=== PATIENT | male | born 1995 | race Caucasian/White ===

== ENCOUNTER 2020-09-19 09:27 | Emergency (ER) | payer SELFPAY ==
[~2020-09-19] VITALS: Ht 180.3 cm; Wt 63.5 kg
[2020-09-19 09:30] VITALS: BP 153/92
--- NOTE | 2020-09-19 09:36 | NUR ---
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 DENIES SI/HI. PT STATES "NOT TAKING ANY MEDS AT THE MOMENT". PT PRESENTS W/ POOR HYGIENE. PT TACHYCARDIC, OTHER VS WDL. PT AMBULATED TO ROOM W/ A STEADY GAIT.
--- NOTE | 2020-09-19 09:39 | NUR ---
KENNEL HAND: BREATHLYZER 0.00
--- NOTE | 2020-09-19 10:07 | NUR ---
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
[2020-09-19 10:23] LABS: BASOPHILS % (AUTO) 1 % (0-1); EOSINOPHILS % (AUTO) 1 % (1-7); LYMPHOCYTES % (AUTO) 22 % (22-44); MEAN CORPUSCULAR HEMOGLOBIN 31.5 pg (27.5-34.5); MEAN CORPUSCULAR HGB CONC 35.2 g/dL (33.2-36.2); MEAN PLATELET VOLUME 7.9 fL (7.4-10.4); MONOCYTES % (AUTO) 6 % (2-9); NEUTROPHILS % (AUTO) 71 % (42-75); PLATELET COUNT 330 x10^3/uL (130-400); RED BLOOD COUNT 5.43 x10^6/uL (4.38-5.82); RED CELL DISTRIBUTION WIDTH 12.3 % (9.4-14.8)
[2020-09-19 10:24] LABS: MD NO
--- NOTE | 2020-09-19 10:30 | NUR ---
PT GIVEN SUPP O2 PER ERP. ANTICIPATE DC
[2020-09-19 10:31] LABS: ALANINE AMINOTRANSFERASE 32 U/L (12-78); ALBUMIN 4.2 g/dL (3.4-5.0); ANION GAP 3 mmol/L (5-15); CALCIUM 9.2 mg/dL (8.5-10.1); CHLORIDE 105 mmol/L (98-107); CREATININE 1.07 mg/dL (0.7-1.3)
[2020-09-19 10:33] LABS: ALKALINE PHOSPHATASE 110 U/L (45-117); BILIRUBIN,TOTAL 0.9 mg/dL (0.2-1.0); TOTAL PROTEIN 7.3 g/dL (6.4-8.2)
[2020-09-19 10:40] LABS: SALICYLATE LEVEL < 1.7 mg/dL (2.8-20.0)
--- NOTE | 2020-09-19 12:11 | NUR ---
PT UPRIGHT ON [employer] AWAKE & COOPERATIVE, WATCHING TV, NAD, FOOD TRAY GIVEN, NO OTHER NEEDS AT THIS TIME, CALL LIGHT WITHIN REACH. Addendum: 09/19/20 at 1226 by DORA BREAK RN: PT UPRIGHT ON [employer] AWAKE & COOPERATIVE, WATCHING TV, NAD, FOOD TRAY GIVEN, NO OTHER NEEDS AT THIS TIME, CALL LIGHT WITHIN REACH.
--- NOTE | 2020-09-19 12:27 | NUR ---
Patient given discharge instructions and they have confirmed that they understand the instructions. Patient ambulatory with steady gait.
== END 2020-09-19 12:28 | disposition home or self-care (01) ==
LOC: ED 10:51
DX: F10.150 Alcohol abuse with alcohol-induced psychotic disorder with delusions (principal); T65.91XA Toxic effect of unspecified substance, accidental (unintentional), initial encounter; Y90.0 Blood alcohol level of less than 20 mg/100 ml; Y92.89 Other specified places as the place of occurrence of the external cause
CPT/HCPCS: 36415; 80053; 80299; 80320; 80329; 82375; 85025; 99283; G0480